=== PATIENT | female | born 1950 | race Caucasian/White ===

== ENCOUNTER 2021-08-21 11:59 | Outpatient (REF) | payer MEDICARE, SELFPAY ==
[2021-08-21 13:39] LABS: Vitamin B12 423 pg/mL (200-900)
== END 2021-08-21 12:00 | disposition home or self-care (01) ==
LOC: HO.MANLDS 11:59
PROVIDERS: PCP Internal Medicine; Visit Provider Internal Medicine
DX: K29.50 Unspecified chronic gastritis without bleeding (principal)
CPT/HCPCS: 36415; 82607

== ENCOUNTER 2022-04-03 15:40 | Outpatient (REF) | payer MEDICARE, SELFPAY ==
[2022-04-04 08:43] LABS: Vitamin B12 752 pg/mL (200-900)
== END 2022-04-03 15:41 | disposition home or self-care (01) ==
LOC: HO.MANLDS 15:40
PROVIDERS: Visit Provider Internal Medicine
DX: K29.50 Unspecified chronic gastritis without bleeding (principal)
CPT/HCPCS: 36415; 82607

== ENCOUNTER 2024-01-05 10:30 | Outpatient (REF) | payer MEDICARE, SELFPAY ==
[2024-01-05 13:26] LABS: Appearance Urine Clear; Color Urine Yellow; Glucose Urine UA Negative (Negative); Leukocyte Esterase Urine Negative (Negative); Nitrite Urine Negative (Negative); PH 5.5 (5.0-9.0); Specific Gravity - Urine 1.015 (1.005-1.025); Urine Blood Negative (Negative); Urine Ketones Negative (Negative); Urine Protein Negative (Neg-Trace)
== END 2024-01-05 10:31 | disposition home or self-care (01) ==
LOC: HO.MANLNP 10:30
PROVIDERS: Visit Provider Physician Assistant
DX: R30.0 Dysuria (principal)
CPT/HCPCS: 81003